=== PATIENT | male | born 1980 | race Caucasian/White ===

== ENCOUNTER 2020-02-29 09:33 | Inpatient (IN) | payer OTHER ==
--- NOTE | 2020-02-29 09:58 | BHS.RME ---
Substance Use & Tx History - Substance Use History Alcohol Substance amount: 1/2 gallon Frequency of use: Daily Substance route: Oral Date of Last Use: 02/26/20 Cocaine- Powder Substance amount: 3 grams Frequency of use: Once a month Substance route: Inhalation (ex: sniffing or snorting), Smoking Date of Last Use: 02/27/20 - Last Treatment Date of last treatment: 02/08/16 Where was last treatment: Rehab Physical/Psych/Mental Status - Behavior General Behavior: Increased activity (restlessness, agitation) Eye Contact: Normal Other Behaviors: Mannerisms - Cooperativeness Cooperativeness: Cooperative - Thinking Thought Processes: Tight, Logical, Goal Directed Thought content: Future oriented - Physical Health Problems Is patient presently having any pain?: No Does patient presently have any injuries (include location): No Does patient currently have a fever: No CIWA Nausea/Vomitin Muscle Tremors: 3 Anxiety: 2 Agitation: 2 Paroxysmal Sweats: No Perspiration Orientation: 0-Oriented Tacttile Disturbances: 0-None Auditory Disturbances: 0-None Visual Disturbances: 0-None Headache: 2-Mild CIWA-Ar Total Score: 11
--- NOTE | 2020-02-29 10:04 | HP ---
CIWA Score Nausea/Vomitin (Patient reports worse symptoms are coming on) Muscle Tremors: 3 Anxiety: 2 Agitation: 2 Paroxysmal Sweats: No Perspiration Orientation: 0-Oriented Tacttile Disturbances: 0-None Auditory Disturbances: 0-None Visual Disturbances: 0-None Headache: 2-Mild CIWA-Ar Total Score: 11 - Admission Criteria OASAS Guidelines: Admission for Medically Managed Detox: Requires at least one of the followin. CIWA greater than 12 2. Seizures within the past 24 hours 3. Delirium tremens within the past 24 hours 4. Hallucinations within the past 24 hours 5. Acute intervention needed for co occurring medical disorder 6. Acute intervention needed for co occurring psychiatric disorder 7. Severe withdrawal that cannot be handled at a lower level of care (continued vomiting, continued diarrhea, abnormal vital signs) requiring intravenous medication and/or fluids 8. Admitting History and Physical - Smoking History Smoking history: Current every day smoker Have you smoked in the past 12 months: Yes Aproximately how many cigarettes per day: 2 - Alcohol/Substance Use Hx Alcohol Use: Yes Admission [facility] - HPI Chief Complaint: I need detox from alcohol Allergies/Adverse Reactions: Allergies Allergy/AdvReac Type Severity Reaction Status Date / Time No Known Drug Allergies Allergy Verified 02/29/20 10:12 History of Present Illness: 40 year old man is brought in from [facility] where he was evaluated for alcohol intoxication. Patient has withdrawal related seizures in the past. Exam Limitations: No Limitations - Ebola screening Have you traveled outside of the country in the last 21 days: No Have you had contact with anyone from an Ebola affected area: No Have you been sick,other than usual withdrawal symptoms: No Do you have a fever: No - Review of Systems Constitutional: Loss of Appetite, Changes in sleep EENT: reports: No Symptoms Reported Respiratory: reports: No Symptoms reported GI: reports: Nausea, Poor Appetite, Abdominal cramping : reports: No Symptoms Reported Musculoskeletal: reports: Back Pain, Muscle Pain, Muscle Weakness Integumentary: reports: Flushing Neuro: reports: Headache, Tremors Endocrine: reports: No Symptoms Reported Hematology: reports: No Symptoms Reported Psychiatric: reports: No Sypmtoms Reported Other Systems: Reviewed and Negative Patient History - Patient Medical History Hx Anemia: No Hx Asthma: No Hx Chronic Obstructive Pulmonary Disease (COPD): No Hx Cancer: No Hx Cardiac Disorders: No Hx Congestive Heart Failure: No Hx Hypertension: No Hx Hypercholesterolemia: No Hx Pacemaker: No HX Cerebrovascular Accident: No Hx Seizures: Yes (ETOH related) Hx Dementia: No Hx Diabetes: No Hx Gastrointestinal Disorders: No Hx Liver Disease: No Hx Genitourinary Disorders: No Hx Sexually Transmitted Disorders: No Hx Renal Disease (ESRD): No Hx Thyroid Disease: No Hx Human Immunodeficiency Virus (HIV): No Hx Hepatitis C: No Hx Depression: No Hx Suicide Attempt: No Hx Bipolar Disorder: Yes Hx Schizophrenia: No - Patient Surgical History Past Surgical History: Yes Hx Neurologic Surgery: No Hx Cataract Extraction: No Hx Cardiac Surgery: No Hx Lung Surgery: No Hx Breast Surgery: No Hx Breast Biopsy: No Hx Abdominal Surgery: No Hx Appendectomy: Yes (as a child) Hx Cholecystectomy: No Hx Genitourinary Surgery: No Hx Section: No Hx Orthopedic Surgery: Yes (wrist surgery 2 years ago) Anesthesia Reaction: No - PPD History Previous Implant?: Yes Documented Results: Negative w/proof Implanted On Prior [facility] Admission?: Yes Date: 10/21/15 Results: 0 MM PPD to be Administered?: Yes - Smoking Cessation Smoking history: Current every day smoker Have you smoked in the past 12 months: Yes Aproximately how many cigarettes per day: 10 Cigars Per Day: 0 Hx Chewing Tobacco Use: No Initiated information on smoking cessation: Yes 'Breaking Loose' booklet given: 02/29/20 Admission Physical Exam S - Physical General Appearance: Yes: No Apparent Distress, Tremorous HEENTM: Yes: Hearing grossly Normal, Normal ENT Inspection, Normocephalic, No rmal Voice, Pharynx Normal Respiratory: Yes: Chest Non-Tender, Lungs Clear, Normal Breath Sounds, No Respiratory Distress, No Accessory Muscle Use Neck: Yes: No masses,lesions,Nodules, Supple Breast: Yes: Breast Exam Deferred Cardiology: Yes: Regular Rhythm, Regular Rate, S1, S2 Abdominal: Yes: Normal Bowel Sounds, Non Tender, Soft Genitourinary: Yes: Within Normal Limits Back: Yes: Normal Inspection Musculoskeletal: Yes: full range of Motion, Gait Steady, Pelvis Stable, Muscle weakness Extremities: Yes: Normal Range of Motion, Non-Tender, Tremors Neurological: Yes: allopathic doctor II-XII NML intact, Fully Oriented, Alert, Motor Strength 5/5, Normal Mood/Affect, Normal Response Integumentary: Yes: Normal Color, Cold Lymphatic: Yes: Within Normal Limits - Diagnostic (1) Nicotine dependence Current Visit: Yes Status: Chronic Qualifiers: Nicotine product type: cigarettes Substance use status: uncomplicated Qualified Code(s): F17.210 - Nicotine dependence, cigarettes, uncomplicated (2) Alcohol dependence with uncomplicated withdrawal Current Visit: Yes Status: Acute (3) Cocaine dependence Current Visit: Yes Status: Chronic Cleared for Admission S - Detox or Rehab [facility] Level of Care: Medically Managed Detox Regimen/Protocol: Librium Claeared for Rehab Admission: No Breathalyzer - Breathalyzer Breathalyzer: 0 Urine Drug Screen - Test Device Lot number: [id number] Expiration date: 10/14/21 - Control Is test valid?: Yes - Results Drug screen NEGATIVE: No Urine drug screen results: JOELLE-Cocaine Inpatient Rehab Admission - Rehab Decision to Admit Inpatient rehab admission?: No
[2020-02-29] MEDS ORDERED: chlordiazePOXIDE HCL 10 MG CAPSULE PO PRN (10:11)
[2020-02-29] MEDS ORDERED: hydrOXYzine PAMOATE 25 MG CAPSULE (FP) PO PRN (10:11)
[2020-02-29] MEDS ORDERED: ONDANSETRON *ODT* 4 MG TABLET SL ONE (10:11)
[2020-02-29] MEDS ORDERED: ACETAMINOPHEN 325 MG TABLET (FP) PO PRN ×2 (10:11)
[2020-02-29] MEDS ORDERED: MENTHOL/PHENOL 1 EACH UD MM PRN (10:11)
[2020-02-29] MEDS ORDERED: BISMUTH SUBSALICYLATE 524 MG/30 ML UD PO PRN (10:11)
[2020-02-29] MEDS ORDERED: MAGNESIUM HYDROX 2400MG/30ML ORAL SUSPENSION 30 ML CUP PO PRN (10:11)
[2020-02-29] MEDS ORDERED: METHOCARBAMOL 500 MG TABLET PO PRN (10:11)
[2020-02-29] MEDS ORDERED: MAG HYDROX/AL HYDROX/SIMETH 30 ML UNIT-DOSE CUP PO PRN (10:11)
[2020-02-29] MEDS ORDERED: MAGNESIUM CITRATE 300 ML BOTTLE PO PRN (10:11)
[2020-02-29] MEDS ORDERED: IBUPROFEN 400 MG TABLET (FP) PO PRN (10:11)
[2020-02-29] MEDS: chlordiazePOXIDE HCL 25 MG CAPSULE PO SCH ×2 (13:16→21:23)
[2020-02-29] MEDS: THIAMINE HCL 100 MG TABLET (FP) PO SCH (21:23)
[2020-02-29] MEDS: MELATONIN 5 MG TABLETS PO SCH (21:23)
[2020-03-01] MEDS: chlordiazePOXIDE HCL 25 MG CAPSULE PO SCH ×3 (05:27→21:20)
[2020-03-01] MEDS: PRENATAL VITAMINS W/ FOLIC ACID TABLET (FP) PO SCH (10:20)
--- NOTE | 2020-03-01 10:36 | PN ---
S CIWA - CIWA Score Nausea/Vomitin Muscle Tremors: 2 Anxiety: 2 Agitation: 2 Paroxysmal Sweats: No Perspiration Orientation: 0-Oriented Tacttile Disturbances: 1-Very Mild Itch/Numbness Auditory Disturbances: 0-None Visual Disturbances: 0-None Headache: 2-Mild CIWA-Ar Total Score: 11 BHS Progress Note (SOAP) Subjective: alert,irritable,anxious,interrupted sleep,tremor,pain in the body and back Objective: 03/01/20 10:35 Vital Signs Temperature 97.7 F 03/01/20 08:30 Pulse Rate 80 03/01/20 08:30 Respiratory Rate 17 03/01/20 08:30 Blood Pressure 116/77 03/01/20 08:30 O2 Sat by Pulse Oximetry (%) 96 03/01/20 05:21 03/01/20 10:35 labs pending Assessment: 03/01/20 10:36 withdrawal symptom Plan: continue detox librium regimen
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
[2020-03-01 10:53] LABS: POTASSIUM 3.6 mmol/L (3.5-5.1)
[2020-03-01 10:54] LABS: HEMATOCRIT 37.6 % (35.4-49); HEMOGLOBIN 12.2 GM/dL (11.7-16.9); MCH 26.7 pg (25.7-33.7); MCHC 32.5 g/dl (32.0-35.9); MEAN PLT VOLUME 8.9 fl (7.5-11.1); PLATELET COUNT 197 K/MM3 (134-434); RBC 4.58 M/mm3 (4.00-5.60); RDW 16.5 % (11.9-15.9); WHITE BLOOD COUNT 4.4 K/mm3 (4.0-10.0)
[2020-03-01 11:02] LABS: ALBUMIN 3.2 g/dl (3.4-5.0); BILIRUBIN,TOTAL 0.4 mg/dL (0.2-1); CALCIUM 8.8 mg/dL (8.5-10.1); CREATININE 0.9 mg/dL (0.55-1.3); TOT PROT 6.5 g/dl (6.4-8.2)
[2020-03-01] MEDS: NICOTINE POLACRILEX 2 MG GUM BUC PRN ×3 (15:49→22:17)
[2020-03-01] MEDS: THIAMINE HCL 100 MG TABLET (FP) PO SCH (21:20)
[2020-03-01] MEDS: QUEtiapine FUMARATE 100 MG TABLET (FP) PO SCH (21:20)
[2020-03-01] MEDS: MELATONIN 5 MG TABLETS PO SCH (23:09)
[2020-03-02] MEDS: chlordiazePOXIDE 5 MG CAPSULE PO SCH ×3 (05:53→22:08)
[2020-03-02] MEDS: PRENATAL VITAMINS W/ FOLIC ACID TABLET (FP) PO SCH (11:19)
[2020-03-02] MEDS: NICOTINE POLACRILEX 2 MG GUM BUC PRN ×2 (12:58→20:03)
--- NOTE | 2020-03-02 14:44 | PN ---
S CIWA - CIWA Score Nausea/Vomitin-Mild Nausea/No Vomiting Muscle Tremors: 2 Anxiety: 2 Agitation: 2 Paroxysmal Sweats: 1-Minimal Palms Moist Orientation: 0-Oriented Tacttile Disturbances: 1-Very Mild Itch/Numbness Auditory Disturbances: 0-None Visual Disturbances: 0-None Headache: 2-Mild CIWA-Ar Total Score: 11 S Progress Note (SOAP) Subjective: alert,irritable,anxious,interrupted sleep,tremor,aching pain Objective: 03/02/20 14:46 Vital Signs Temperature 97.7 F 03/02/20 12:46 Pulse Rate 86 03/02/20 12:46 Respiratory Rate 18 03/02/20 12:46 Blood Pressure 128/83 03/02/20 12:46 O2 Sat by Pulse Oximetry (%) 99 03/02/20 12:46 03/02/20 14:46 Laboratory Last Values WBC 4.4 K/mm3 (4.0-10.0) 03/01/20 07:45 RBC 4.58 M/mm3 (4.00-5.60) 03/01/20 07:45 Hgb 12.2 GM/dL (11.7-16.9) 03/01/20 07:45 Hct 37.6 % (35.4-49) 03/01/20 07:45 MCV 82.0 fl (80-96) 03/01/20 07:45 MCH 26.7 pg (25.7-33.7) 03/01/20 07:45 MCHC 32.5 g/dl (32.0-35.9) 03/01/20 07:45 RDW 16.5 % (11.9-15.9) H 03/01/20 07:45 Plt Count 197 K/MM3 (134-434) D 03/01/20 07:45 MPV 8.9 fl (7.5-11.1) 03/01/20 07:45 Sodium 138 mmol/L (136-145) 03/01/20 07:45 Potassium 3.6 mmol/L (3.5-5.1) 03/01/20 07:45 Chloride 104 mmol/L (98-107) 03/01/20 07:45 Carbon Dioxide 27 mmol/L (21-32) 03/01/20 07:45 Anion Gap 7 MMOL/L (8-16) L 03/01/20 07:45 BUN 12.0 mg/dL (7-18) 03/01/20 07:45 Creatinine 0.9 mg/dL (0.55-1.3) 03/01/20 07:45 Est GFR (CKD-EPI)AfAm 121.67 03/01/20 07:45 Est GFR (CKD-EPI)NonAf 104.98 03/01/20 07:45 Random Glucose 93 mg/dL (74-106) 03/01/20 07:45 Calcium 8.8 mg/dL (8.5-10.1) 03/01/20 07:45 Total Bilirubin 0.4 mg/dL (0.2-1) 03/01/20 07:45 AST 45 U/L (15-37) H 03/01/20 07:45 ALT 78 U/L (13-61) H 03/01/20 07:45 Alkaline Phosphatase 79 U/L (45-117) 03/01/20 07:45 Total Protein 6.5 g/dl (6.4-8.2) 03/01/20 07:45 Albumin 3.2 g/dl (3.4-5.0) L 03/01/20 07:45 Syphilis Serology Non-reactive (NONREACTIVE) 03/01/20 07:45 COVID-19 (DAVID) Not detected (Not Detected) 02/29/20 12:01 Assessment: 03/02/20 14:46 withdrawal symptom Plan: continue detox librium regimen
[2020-03-02] MEDS: QUEtiapine FUMARATE 100 MG TABLET (FP) PO SCH (22:09)
[2020-03-02] MEDS: THIAMINE HCL 100 MG TABLET (FP) PO SCH (22:09)
[2020-03-02] MEDS: MELATONIN 5 MG TABLETS PO SCH (22:38)
[2020-03-03] MEDS ORDERED: chlordiazePOXIDE HCL 10 MG CAPSULE PO PRN
[2020-03-03] MEDS: chlordiazePOXIDE HCL 10 MG CAPSULE PO SCH ×3 (07:15→21:58)
[2020-03-03] MEDS: PRENATAL VITAMINS W/ FOLIC ACID TABLET (FP) PO SCH (10:11)
--- NOTE | 2020-03-03 11:30 | PN ---
S CIWA - CIWA Score Nausea/Vomitin-Mild Nausea/No Vomiting Muscle Tremors: 2 Anxiety: 2 Agitation: 1-Slight > Activity Paroxysmal Sweats: No Perspiration Orientation: 0-Oriented Tacttile Disturbances: 0-None Auditory Disturbances: 0-None Visual Disturbances: 0-None Headache: 1-Very Mild CIWA-Ar Total Score: 7 S Progress Note (SOAP) Subjective: alert,interrupted slep,aching pain Objective: 03/03/20 11:28 Vital Signs Temperature 98.2 F 03/03/20 08:32 Pulse Rate 76 03/03/20 08:32 Respiratory Rate 17 03/03/20 08:32 Blood Pressure 98/55 L 03/03/20 08:32 O2 Sat by Pulse Oximetry (%) 99 03/03/20 08:32 03/03/20 11:29 withdrawal symptptom Assessment: 03/03/20 11:29 withdrawal symptom Plan: continue detox librium regimen,discharge in am
[2020-03-03] MEDS: NICOTINE POLACRILEX 2 MG GUM BUC PRN ×3 (11:56→18:50)
[2020-03-03] MEDS: QUEtiapine FUMARATE 100 MG TABLET (FP) PO SCH (21:58)
[2020-03-03] MEDS: THIAMINE HCL 100 MG TABLET (FP) PO SCH (21:58)
[2020-03-03] MEDS: MELATONIN 5 MG TABLETS PO SCH (22:00)
[2020-03-04] MEDS ORDERED: chlordiazePOXIDE HCL 10 MG CAPSULE PO ONE (05:00)
--- NOTE | 2020-03-04 09:47 | DS ---
[facility] Detox Discharge Summary Admission Date: 02/29/20 Discharge Date: 03/04/20 - History Present History: Alcohol Dependence, Cocaine Dependence Additional Comments: alert,oriented x 3 ambulation on the unit lung clear on auscultation bilaterally abdomen soft,no distension,no pain,no tenderness no swelling of legs detox completed,no withdrawal symptom stable for discharge today follow up with after care program [facility] arrangement total time of discharge 35 minutes Pertinent Past History: alcohol related seizure bipolar disorder history of surgery of fx of left wrist history of appendectomy - Physical Exam Results Vital Signs: Vital Signs Temperature 97.5 F L 03/04/20 06:17 Pulse Rate 76 03/04/20 06:17 Respiratory Rate 18 03/04/20 06:17 Blood Pressure 117/77 03/04/20 06:17 O2 Sat by Pulse Oximetry (%) 97 03/04/20 06:17 Pertinent Admission Physical Exam Findings: withdrawal signs and symptom Laboratory Last Values WBC 4.4 K/mm3 (4.0-10.0) 03/01/20 07:45 RBC 4.58 M/mm3 (4.00-5.60) 03/01/20 07:45 Hgb 12.2 GM/dL (11.7-16.9) 03/01/20 07:45 Hct 37.6 % (35.4-49) 03/01/20 07:45 MCV 82.0 fl (80-96) 03/01/20 07:45 MCH 26.7 pg (25.7-33.7) 03/01/20 07:45 MCHC 32.5 g/dl (32.0-35.9) 03/01/20 07:45 RDW 16.5 % (11.9-15.9) H 03/01/20 07:45 Plt Count 197 K/MM3 (134-434) D 03/01/20 07:45 MPV 8.9 fl (7.5-11.1) 03/01/20 07:45 Sodium 138 mmol/L (136-145) 03/01/20 07:45 Potassium 3.6 mmol/L (3.5-5.1) 03/01/20 07:45 Chloride 104 mmol/L (98-107) 03/01/20 07:45 Carbon Dioxide 27 mmol/L (21-32) 03/01/20 07:45 Anion Gap 7 MMOL/L (8-16) L 03/01/20 07:45 BUN 12.0 mg/dL (7-18) 03/01/20 07:45 Creatinine 0.9 mg/dL (0.55-1.3) 03/01/20 07:45 Est GFR (CKD-EPI)AfAm 121.67 03/01/20 07:45 Est GFR (CKD-EPI)NonAf 104.98 03/01/20 07:45 Random Glucose 93 mg/dL (74-106) 03/01/20 07:45 Calcium 8.8 mg/dL (8.5-10.1) 03/01/20 07:45 Total Bilirubin 0.4 mg/dL (0.2-1) 03/01/20 07:45 AST 45 U/L (15-37) H 03/01/20 07:45 ALT 78 U/L (13-61) H 03/01/20 07:45 Alkaline Phosphatase 79 U/L (45-117) 03/01/20 07:45 Total Protein 6.5 g/dl (6.4-8.2) 03/01/20 07:45 Albumin 3.2 g/dl (3.4-5.0) L 03/01/20 07:45 Syphilis Serology Non-reactive (NONREACTIVE) 03/01/20 07:45 COVID-19 (DAVID) Not detected (Not Detected) 02/29/20 12:01 Vital Signs Temperature 97.5 F L 03/04/20 06:17 Pulse Rate 76 03/04/20 06:17 Respiratory Rate 18 03/04/20 06:17 Blood Pressure 117/77 03/04/20 06:17 O2 Sat by Pulse Oximetry (%) 97 03/04/20 06:17 - Treatment Hospital Course: Detox Protocol Followed, Detoxed Safely, Responded well, Discharged Condition Good, Rehab Referral Accepted Patient has Accepted a Rehab Referral to: [facility] - Medication Discharge Medications: Ambulatory Orders NK [No Known Home Medication] 02/29/20 - Diagnosis (1) Alcohol dependence with uncomplicated withdrawal Current Visit: Yes Status: Acute (2) Cocaine dependence Current Visit: Yes Status: Acute (3) Nicotine dependence Current Visit: Yes Status: Chronic Qualifiers: Nicotine product type: cigarettes Substance use status: uncomplicated Qualified Code(s): F17.210 - Nicotine dependence, cigarettes, uncomplicated (4) Alcohol related seizure Current Visit: Yes Status: Resolved (5) Bipolar disorder Current Visit: No Status: Acute (6) History of appendectomy Current Visit: Yes Status: Acute (7) History of surgery on left wrist Current Visit: Yes Status: Acute - AMA Did Patient Leave Against Medical Advice: No
--- NOTE | 2020-03-04 09:47 | PN ---
[facility] CIWA - CIWA Score Nausea/Vomitin-No Nausea/No Vomiting Muscle Tremors: None Anxiety: 1-Mildly Anxious Agitation: 0-Normal Activity Paroxysmal Sweats: No Perspiration Orientation: 0-Oriented Tacttile Disturbances: 0-None Auditory Disturbances: 0-None Visual Disturbances: 0-None Headache: 0-None Present CIWA-Ar Total Score: 1 S Progress Note (SOAP) Subjective: alert,no conmplaint Objective: 03/04/20 09:45 Vital Signs Temperature 97.5 F L 03/04/20 06:17 Pulse Rate 76 03/04/20 06:17 Respiratory Rate 18 03/04/20 06:17 Blood Pressure 117/77 03/04/20 06:17 O2 Sat by Pulse Oximetry (%) 97 03/04/20 06:17 03/04/20 09:45 detox completed,no withdrawal symptom Assessment: 03/04/20 09:46 no withdrawal symptom Plan: stable for discharge today,follow up with after care program [facility] arrangement
[2020-03-04 11:21] VITALS: BP 110/63; PULSE 78; TEMP 96.8
== END 2020-03-04 11:58 | disposition other institution (70) | DRG 774 ==
LOC: YASAS 09:33 → Y6N 10:20
PROVIDERS: ADMIT Allergy & Immunology; ATTEND Allergy & Immunology
PROC: HZ2ZZZZ Detoxification Services for Substance Abuse Treatment (ICD-10-PCS; principal; 2020-02-29)
DX: F10.230 Alcohol dependence with withdrawal, uncomplicated (principal); F14.20 Cocaine dependence, uncomplicated; F17.210 Nicotine dependence, cigarettes, uncomplicated; F10.24 Alcohol dependence with alcohol-induced mood disorder; F10.280 Alcohol dependence with alcohol-induced anxiety disorder; F10.282 Alcohol dependence with alcohol-induced sleep disorder; F31.9 Bipolar disorder, unspecified; Z86.69 Personal history of other diseases of the nervous system and sense organs; Z87.81 Personal history of (healed) traumatic fracture; Z91.5 Personal history of self-harm; Z90.49 Acquired absence of other specified parts of digestive tract; Z56.0 Unemployment, unspecified
CPT/HCPCS: 36415; 80053; 85027; 86780; Q0162; U0003

== ENCOUNTER 2020-03-04 12:10 | Inpatient (IN) | payer OTHER ==
--- NOTE | 2020-03-04 13:07 | HP ---
[facility] Rehab Assess/Revision - Admission History Admitted to Rehab from: [facility] Date of Admission to Rehab: 03/04/20 - Vital signs Vital Signs: Vital Signs Period Temp Pulse Resp BP Sys/Hopkins Pulse Ox Last 24 Hr 97.5 F 92 18 139/88 98 - Findings Detox History & Physical reviewed: Yes Concur with findings: Yes Comments/Additional Findings: Completed alcohol Detox on today. Referred to Rehab . C/o muscle aches /spasms. Pt requesting HIV screen. PMHx:Alcohol related Seizure; SHx:Appendectomy. Psych:Bipolar Disorder. Alert o x 3. nad. oob ambulating with steady gait. Extremities:no edema;skin intact. Rehab admit. HIV Screen lab in [facility]. Inpatient Rehab Admission - Rehab Decision to Admit Inpatient rehab admission?: Yes - Initial Determination Are CD services needed?: Yes Free of communicable disease: Yes Not in need of hospitalization: Yes - Rehab Admission Criteria Previous failed treatment: Yes Poor recovery environment: Yes Comorbidities: Yes Lacks judgement: Yes Patient is meeting Inpatient Rehab admission criteria:: Yes
[2020-03-04] MEDS ORDERED: MENTHOL/PHENOL 1 EACH UD MM PRN (13:09)
[2020-03-04] MEDS ORDERED: MAGNESIUM CITRATE 300 ML BOTTLE PO PRN (13:09)
[2020-03-04] MEDS ORDERED: MAGNESIUM HYDROX 2400MG/30ML ORAL SUSPENSION 30 ML CUP PO PRN (13:09)
[2020-03-04] MEDS ORDERED: MAG HYDROX/AL HYDROX/SIMETH 30 ML UNIT-DOSE CUP PO PRN (13:09)
[2020-03-04] MEDS ORDERED: LOPERAMIDE HCL 2 MG CAPSULE PO PRN (13:09)
[2020-03-04] MEDS ORDERED: guaiFENesin 200 MG/10 ML 10 ML UNIT-DOSE CUPS PO PRN (13:09)
[2020-03-04] MEDS ORDERED: ACETAMINOPHEN 325 MG TABLET (FP) PO PRN (13:09)
[2020-03-04] MEDS ORDERED: P-EPHED 60MG/TRIPROLIDI 2.5MG TABLET PO PRN (13:09)
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
[2020-03-04] MEDS: NICOTINE POLACRILEX 2 MG GUM BUC PRN ×2 (16:29→21:41)
[2020-03-04] MEDS: hydrOXYzine PAMOATE 25 MG CAPSULE (FP) PO PRN (16:29)
[2020-03-04] MEDS: MELATONIN 5 MG TABLETS PO SCH (21:40)
[2020-03-04] MEDS: QUEtiapine FUMARATE 200 MG TABLET PO SCH (21:41)
[2020-03-04] MEDS: THIAMINE HCL 100 MG TABLET (FP) PO SCH (21:41)
[2020-03-04] MEDS ORDERED: QUEtiapine FUMARATE 100 MG TABLET (FP) PO SCH (22:00)
[2020-03-05] MEDS: PRENATAL VITAMINS W/ FOLIC ACID TABLET (FP) PO SCH (09:42)
[2020-03-05] MEDS: NICOTINE 7 MG/24 HOURS TOPICAL PATCH TD SCH (09:42)
[2020-03-05] MEDS: METHOCARBAMOL 500 MG TABLET PO PRN ×2 (12:58→21:21)
[2020-03-05] MEDS: IBUPROFEN 400 MG TABLET (FP) PO PRN (12:58)
[2020-03-05] MEDS: NICOTINE POLACRILEX 2 MG GUM BUC PRN ×3 (13:01→19:47)
[2020-03-05] MEDS: QUEtiapine FUMARATE 200 MG TABLET PO SCH (21:21)
[2020-03-05] MEDS: MELATONIN 5 MG TABLETS PO SCH (21:21)
[2020-03-05] MEDS: THIAMINE HCL 100 MG TABLET (FP) PO SCH (21:21)
[2020-03-05] MEDS: hydrOXYzine PAMOATE 25 MG CAPSULE (FP) PO PRN (21:21)
[2020-03-06] MEDS: NICOTINE 7 MG/24 HOURS TOPICAL PATCH TD SCH (10:19)
[2020-03-06] MEDS: PRENATAL VITAMINS W/ FOLIC ACID TABLET (FP) PO SCH (10:19)
[2020-03-06] MEDS: NICOTINE POLACRILEX 2 MG GUM BUC PRN ×3 (12:57→20:36)
[2020-03-06] MEDS: QUEtiapine FUMARATE 200 MG TABLET PO SCH (21:30)
[2020-03-06] MEDS: THIAMINE HCL 100 MG TABLET (FP) PO SCH (21:30)
[2020-03-06] MEDS: MELATONIN 5 MG TABLETS PO SCH (21:31)
[2020-03-07] MEDS: IBUPROFEN 400 MG TABLET (FP) PO PRN ×2 (06:43→13:12)
[2020-03-07] MEDS: METHOCARBAMOL 500 MG TABLET PO PRN (06:44)
[2020-03-07] MEDS: NICOTINE POLACRILEX 2 MG GUM BUC PRN ×4 (06:45→23:00)
[2020-03-07] MEDS: NICOTINE 7 MG/24 HOURS TOPICAL PATCH TD SCH (10:19)
[2020-03-07] MEDS: PRENATAL VITAMINS W/ FOLIC ACID TABLET (FP) PO SCH (10:19)
[2020-03-07] MEDS ORDERED: MASKS NR ONE (18:22)
[2020-03-07] MEDS: QUEtiapine FUMARATE 200 MG TABLET PO SCH (21:32)
[2020-03-07] MEDS: THIAMINE HCL 100 MG TABLET (FP) PO SCH (21:32)
[2020-03-07] MEDS: MELATONIN 5 MG TABLETS PO SCH (21:33)
[2020-03-08 07:11] VITALS: PULSE 81
[2020-03-08] MEDS: NICOTINE POLACRILEX 2 MG GUM BUC PRN ×6 (07:30→21:29)
[2020-03-08] MEDS: METHOCARBAMOL 500 MG TABLET PO PRN ×2 (09:55→21:28)
[2020-03-08] MEDS: IBUPROFEN 400 MG TABLET (FP) PO PRN ×2 (09:55→15:47)
[2020-03-08] MEDS: PRENATAL VITAMINS W/ FOLIC ACID TABLET (FP) PO SCH (09:55)
[2020-03-08] MEDS: NICOTINE 7 MG/24 HOURS TOPICAL PATCH TD SCH (09:56)
[2020-03-08] MEDS: hydrOXYzine PAMOATE 25 MG CAPSULE (FP) PO PRN (21:28)
[2020-03-08] MEDS: QUEtiapine FUMARATE 200 MG TABLET PO SCH (21:28)
[2020-03-08] MEDS: THIAMINE HCL 100 MG TABLET (FP) PO SCH (21:28)
[2020-03-08] MEDS: MELATONIN 5 MG TABLETS PO SCH (21:29)
[2020-03-09 06:56] VITALS: BP 119/75; TEMP 97.3
[2020-03-09] MEDS: IBUPROFEN 400 MG TABLET (FP) PO PRN (06:58)
[2020-03-09] MEDS: NICOTINE POLACRILEX 2 MG GUM BUC PRN (07:00)
--- NOTE | 2020-03-09 09:12 | DS ---
[facility] Rehab Discharge Summary - [facility] Rehab Discharge Summary Admission Date: 03/04/20 Discharge Date: 03/09/20 - History Present History: Alcohol dependence, Cocaine dependence Additional Comments: Pt requests early discharge today stating he has to go to court in [facility] tomorrow. Pt was seen by counselor and aftercare referral given to pt to follow up. Pertinent Past History: Hx Alcohol related Seizure Left wrist fx S/P Appendectomy Bipolar Disorder Anxiety Disorder - Discharge Physical Exam Vital Signs: Vital Signs Temperature 97.3 F L 03/09/20 06:38 Pulse Rate 81 03/09/20 06:38 Respiratory Rate 18 03/09/20 06:38 Blood Pressure 119/75 03/09/20 06:38 O2 Sat by Pulse Oximetry (%) 98 03/09/20 06:38 General:WDWN male Resp:nad,no resp difficulty; pulse ox- 98% Mental:alert o x 3,coherent MSK/skin:Active FROM, all limbs; oob ambulating with steady gait, no edema, skin intact. Pertinent Admission Physical Exam Findings: s/p detox Laboratory Tests 03/05/20 08:10 HIV Ag/Ab Combo Qual Negative - Treatment Discharge Condition: Discharge condition good, Rehabilitated safely, Outpatient referral accepted Hospital Course: CD aftercare accepted to [facility] Chemical Dependency program - Medication Discharge Medications: Ambulatory Orders Quetiapine Fumarate [Seroquel -] 100 mg PO HS 03/04/20 Quetiapine Fumarate [Seroquel] 300 mg PO HS 03/04/20 - Medication-Assisted Treatment (MAT) Medication-Assisted Treatment (MAT): No - Discharge Instructions Diet, activity, other medical instructions: Diet:Regular Activity: oob ad sanchez Other medical instructions:follow up with CD aftercare as scheduled. Follow up with primary care with [facility] as needed. - Diagnosis (1) Alcohol dependence Status: Chronic Qualifiers: Substance use status: uncomplicated Qualified Code(s): F10.20 - Alcohol dependence, uncomplicated (2) Cocaine dependence Status: Chronic (3) Nicotine dependence Status: Chronic Qualifiers: Nicotine product type: cigarettes Substance use status: uncomplicated Qualified Code(s): F17.210 - Nicotine dependence, cigarettes, uncomplicated (4) Alcohol related seizure Status: Resolved - Follow-up Referral Minutes to complete discharge: 25 - AMA Did Patient Leave Against Medical Advice: No
== END 2020-03-09 09:50 | disposition home or self-care (01) | DRG 772 ==
LOC: YASAS 12:10 → Y5N 12:11
PROVIDERS: ADMIT Allergy & Immunology; ATTEND Allergy & Immunology
PROC: HZ42ZZZ Group Counseling for Substance Abuse Treatment, Cognitive-Behavioral (ICD-10-PCS; principal; 2020-03-04)
DX: F10.20 Alcohol dependence, uncomplicated (principal); F14.20 Cocaine dependence, uncomplicated; F17.210 Nicotine dependence, cigarettes, uncomplicated; F10.280 Alcohol dependence with alcohol-induced anxiety disorder; F10.282 Alcohol dependence with alcohol-induced sleep disorder; F31.9 Bipolar disorder, unspecified; F41.9 Anxiety disorder, unspecified; Z86.69 Personal history of other diseases of the nervous system and sense organs; Z87.81 Personal history of (healed) traumatic fracture; Z90.49 Acquired absence of other specified parts of digestive tract
CPT/HCPCS: 36415; 87389